=== PATIENT | female | born 1990 | race Caucasian/White ===

== ENCOUNTER 2020-06-17 08:36 | Emergency (ER) | payer OTHER ==
[~2020-06-17] VITALS: Ht 167.6 cm; Wt 84.4 kg
[2020-06-17 08:42] VITALS: BP 164/100
--- NOTE | 2020-06-17 09:42 | NUR ---
C/O INTERMITENT PELVIC PAIN RADIATING TO FRAN HIP& BUTTOCKS X 1 MONTH. FBS 300 THIS AM. PMH: DM TYPE1, THYROID, HTN
[2020-06-17 10:22] VITALS: BP 164/100
--- NOTE | 2020-06-17 10:22 | NUR ---
Patient discharged BY DR GAMA with v/s stable. Written and verbal after care instructions given and explained. Patient alert, oriented and verbalized understanding of instructions. Ambulatory with steady gait. All questions addressed prior to discharge. ID band removed. Patient advised to follow up with PMD. Rx ofMACROBID & PYRIDIUM given. Patient educated on indication of medication including possible reaction and side effects. Opportunity to ask questions provided and answered.
== END 2020-06-17 10:22 | disposition home or self-care (01) ==
LOC: MED 08:36
DX: N39.0 Urinary tract infection, site not specified (principal); E11.9 Type 2 diabetes mellitus without complications; Z88.6 Allergy status to analgesic agent; Z88.5 Allergy status to narcotic agent; Z88.8 Allergy status to other drugs, medicaments and biological substances
CPT/HCPCS: 81002; 81025; 99283